=== PATIENT | female | born 1995 | race Caucasian/White ===

== ENCOUNTER 2019-08-02 08:00 | Inpatient (IN) ==
--- NOTE | 2019-08-02 08:23 | OB/GYN History & Physical ---
Date of Encounter: 08/02/19 Time of Encounter: 08:19 Assessment and Plan (1) and not yet delivered in third trimester Current visit: Yes Status: Acute (2) Elective induction of labor planned Current visit: Yes Status: Acute Patient will be induced with a Granados catheter and Cytotec plan is to anticipate vaginal delivery (3) 39 weeks gestation of Current visit: No Status: Resolved History of Present Illness HPI: Ms. Roth is a 24 year old female 5 para 1031 at 39-3/7 weeks who presented for induction of labor secondary to term with favorable cervix. She has an uncomplicated course and wanted to be induced at term. She has signed tubal ligation papers however to recommended that she have a tubal at 6 weeks. The risks and benefits of the tubal ligation had been. The risks and benefits of a tubal ligation was explained to the patient with failure rate of 3-5 per thousand with increased risk of ectopic if was to occur. She denies any contractions at this time denies any leaking fluid still having good movement. Patient is O+, GBS negative, rubella negative, Varicella positive Past Med Surg Social Fam HX - Past Medical History Source: patient, old records reviewed Medical history: no medical history, other Additional medical history: Interstitial cystitis, irritable bowel syndrome Psychiatric history: no psych history - Past Surgical History Additional surgical history: right fallopian tube removed - Social History Smoking Status: Current every day smoker Smokeless Tobacco Status: No Alcohol use: occasionally Drug use: none Occupational status: unemployed Current living situation: Home - Independent Activity Level: Independent ambulation Recent Out of Country Travel Within the Last 8 Weeks: No Exposure or Possible Exposure to Illness During Travel: No - Family History Father Living Status: Still Living Hx Family Cardiac Disorders: Yes Hx Family Respiratory Disorders: Yes - Additional Family History Additional family history: Noncontributory at this time Obstetrical History - Pregnancies : 5 Para: 1 Ab's: 3 Livin Medications and Allergies Vit/FA 1 tab PO DAILY 08/01/15 [History] Ferrous Sulfate [Iron] 325 mg PO DAILY 08/02/19 [History] Allergy/AdvReac Type Severity Reaction Status Date / Time No Known Allergies Allergy Verified 08/02/19 08:59 Review of System OB All systems PM: reviewed and no additional remarkable complaints except as stated Exam - Constitutional Constitutional: well developed, well nourished, no acute distress, mild distress, thin - HEENT HEENT: EOMI, PERRL, Mucus Membranes Moist - Neck Neck exam: full ROM - Lungs Respiratory exam: CTAB - Cardiovascular Cardiovascular exam: RRR - Abdomen Abdomen: Present: bowel sounds normal, gravid ( heart tones 140s reactive occasional contractions seen) - Cervix Dilation: 2 Effacement: 80 Station: -1 (Granados catheter placed 40 mL balloon inflated then 25 g of Cytotec placed vaginally) Results Result Diagrams: 08/02/19 08:40 All other labs normal.
[2019-08-02] MEDS ORDERED: *HR* Nalbuphine 10 MG/ML AMPUL IVP PRN (08:37)
[2019-08-02] MEDS ORDERED: Naloxone 0.4 MG/ML INJ IVP PRN ×2 (08:37→11:16)
[2019-08-02] MEDS ORDERED: Ondansetron 4 MG/2 ML VIAL IVP PRN ×2 (08:37→11:16)
[2019-08-02] MEDS ORDERED: Famotidine 20 MG/2 ML VIAL IVP PRN (08:37)
[2019-08-02] MEDS ORDERED: Lidocaine 1% 20 ML MDV INFILT PRN (08:37)
[2019-08-02] MEDS ORDERED: Metoclopramide 10 MG/2 ML VIAL IVP PRN (08:37)
[2019-08-02] MEDS ORDERED: Ringers Solution, Lactated 1,000 ML IVC SCH (08:45)
[2019-08-02 09:05] LABS: Basophils % 0.2 %; Eosinophils # 0.1 K/mcL (0.0-0.6); Eosinophils % 0.6 %; Hemoglobin 11.9 g/dL (11.5-15.4); Immature Granulocytes % 0.2 % (0-4); Lymphocytes % 22.8 %; Mean Corpuscular Hemoglobin 31.2 pg (28.0-33.3); Mean Corpuscular Volume 91.6 fL (83.0-100.0); Mean Platelet Volume 13.1 fL (9.4-12.4); Monocytes # 0.8 K/mcL (0.0-1.3); Neutrophils # 5.9 K/mcL (1.6-8.9); Platelet Count 146 K/mcL (140-400); Red Blood Count 3.82 M/mcL (3.82-4.97); Red Cell Distribution Width 13.8 % (11.5-14.5); Segmented Neutrophils % 67.2 %; White Blood Count 8.8 K/mcL (4.3-11.1)
[2019-08-02 09:27] LABS: Amphetamine Screen,Urine Negative ng/mL (Cutoff=1000); Barbiturate Screen,Urine Negative ng/mL (Cutoff=200); Benzodiazepines Screen,Urine Negative ng/mL (Cutoff=200); Cannabinoid Screen,Urine Negative ng/mL (Cutoff = 50); Cocaine Screen,Urine Negative ng/mL (Cutoff= 300); Opiate Screen,Urine Negative ng/mL (Cutoff=300); Phencyclidine Screen,Urine Negative ng/mL (Cutoff=25)
[2019-08-02] MEDS ORDERED: miSOPROStol 25 MCG TABLET VG SCH (09:45)
[2019-08-02] MEDS ORDERED: Oxytocin 20 units/ LR 1000 mL 20 UNIT/1,000 ML BAG IVC SCH ×2 (10:00→17:31)
[2019-08-02] MEDS ORDERED: EPHEDrine 50 MG/ML VIAL IVP PRN (11:16)
[2019-08-02] MEDS ORDERED: *HR* FentaNYL (PF) 100 MCG/2 ML VIAL EP ONE (11:16)
[2019-08-02] MEDS ORDERED: Ropivacaine/PF 0.2% 20 ML VIAL EP ONE (11:16)
--- NOTE | 2019-08-02 11:22 | Anesthesia Evaluation PreOp ---
Date of Encounter: 08/02/19 Time of Encounter: 11:03 - Past History Planned Operation: RADHA Cardiac History: Denies any Significant Hx Pulmonary History: Smoker, Pack/yr (10pk/yr) MUNITIONS HANDLER SUPERVISOR History: Denies Any Significant HX Other Medical History: GERD, Other (Interstitial cystitis, chronic kidney infect ions, ectopic , miscarriage x 2) Anesthesia History: No Prior Anesthetic Complications, Past Anesthesia (history ectopic ) : Yes Alcohol Use: none Drug use: none Medications and Allergies Vit/FA 1 tab PO DAILY 08/01/15 [History] Ferrous Sulfate [Iron] 325 mg PO DAILY 08/02/19 [History] Allergy/AdvReac Type Severity Reaction Status Date / Time No Known Allergies Allergy Verified 08/02/19 08:59 - Meds/Allergy Pre-op Review Medications Reviewed: Yes Allergies Reviewed: Yes Beta Blockers on Current Med List: No Anesthesia Results - Labs 08/02/19 08:40 Anesthesia Exam BP 140/81 P 61 R 18 T 98.0 Height: 5'4" Weight: 61.3kg NPO (# of Hours): 4 Pain Scale: 8 Pain Scale Used: Numeric (1 - 10) - HEENT Pupil (Motor): Pupils equal Mallampati: II Teeth: Normal Oral Opening: Greater than 3 - MUNITIONS HANDLER SUPERVISOR LOC: Oriented MUNITIONS HANDLER SUPERVISOR Motor: Normal RUE, Normal LUE, Normal RLE, Normal LLE, Normal Face MUNITIONS HANDLER SUPERVISOR Sensory: Normal: RUE, LUE, RLE, LLE, Face - Cardiac Rhythm: Regular Murmur: None JVD: No Carotid Bruit: No - Pulmonary Breath Sounds: bilateral Clear Respiratory Effort: Symmetrical Anesthesia Assess/Plan ASA Score: 2 Level of consciousness: Cooperative, Oriented, Tranquil Anesthetic Plan: Epidural Autologous Blood: Yes Monitoring Plan: Standard Monitors Recovery Plan: Other
[2019-08-02] MEDS ORDERED: Epidural Premix (fent/bupiv) 110 ML EP SCH (11:30)
[2019-08-02] MEDS ORDERED: Ropivacaine/PF 0.2% 20 ML VIAL ONE (11:36)
[2019-08-02] MEDS ORDERED: *HR* FentaNYL (PF) 100 MCG/2 ML VIAL ONE (11:36)
--- NOTE | 2019-08-02 12:15 | Anesthesia Procedures ---
Date of Encounter: 08/02/19 Time of Encounter: 11:41 Procedures: Anesthesia - Epidural/Spinal Patient ID/Chart reviewed: Yes Patient examined: Yes OB Eval: Gestational age: 39.3 OB Eval: : 5 OB Eval: Hx Para: 1 OB Eval: Dilated at (cm): 5 OB Eval: Contractions: Non-stressed pattern Consent Obtained: Yes Supplemental Oxygen: None/Room Air Site Prep: Aseptic Technique, Sterile prep and drape, Povidone-Iodine 1% Patient position: upright Local Anesthetic: Lidocaine 1% Amount of Local Anesthetic used: 3 Touhy Needle Gauge: 18 Touhy Needle Depth (cm): 5 Catheter Depth at Skin (cm): 13 Test Dose (1.5% Lido + Epi): Volume given (mls): 3 Test Dose Result: Negative Loading Dose: Fentanyl (mcg): 100 Loading Dose: Other: Ropivicaine 0.2% 5ml, 3ml NS Loading Dose Administered: Thru Catheter Infusion Med: 0.125% Bupivacaine w/ 2 mcg/ml Fentanyl Infusion Rate (mls/hr): [address]: Tegaderm, Tape Interspace Used: L3-L4 Loss of Resistance (MARILU): Yes Blood: No CSF: No Paresthesia: No Procedure: RADHA placed 1st pass in upright position. MARILU achieved with normal saline. Catheter threaded with ease to 13cm at the skin. Test dose negative. Pt stated comfort following epidural bolus administration. VSS throughout. Vitals + FHT's: 1141 BP 143/93 P 76 R 18 1203 BP 123/73 P 83 R 16
--- NOTE | 2019-08-02 12:25 | OB Labor Progress Note ---
Date of Encounter: 08/02/19 Time of Encounter: 12:23 Labor Progress Note - Subjective Subjective: Patient's catheter is out was getting uncomfortable and epidural is now placed. - Cervix Cervix: 5-6/80/-2 AROM clear fluid - Heart Tones Heart Tones: heart tones 140s reactive - Accord Accord: IUPC placed contractions every 2 minutes and adequate - Interventions Interventions: Anticipate normal spontaneous vaginal delivery
--- NOTE | 2019-08-02 15:45 | OB/GYN Procedure Note ---
Delivery - Delivery Date: 08/02/19 Provider: Kofi Rodriguez Intrapartum events: none Delivery augmentation: rupture of membranes (with vann) Delivery monitor: external FHT, external uterine, internal uterine Quantitated Blood Loss: 100 - (s) Infant A Infant Delivery Date: 08/02/19 Infant Delivery Time: 15:27 Presentation: vertex Position: SPENCER Route of delivery: Gender: Male Viability: Viable Pounds: 8 Ounces: 9 Weight Gram: 3.895 kg at 1 minute: 9 at 5 mins: 9 Shoulder Dystocia: not encountered Specimens collected: cord blood Placenta: spontaneous Cord: 3 umbilical vessels - Repair Episiotomy: none Laceration Description: None - Complications Delivery complications: none Delivery comments: Patient is a 24 year old 5 para 1031 at 39-3/7 weeks who presented to labor and delivery for an induction of labor however patient was already donya and was on was 3 cm on admission. Patient was donya every 2 minutes on admission it only required us to place a Vann catheter and within an hour she was 5-6 cm. Epidural was placed she was then artificially ruptured no additional augmentation was necessary patient progressed rapidly to be complete and pushed for approximately 10 minutes delivering a viable male in left occiput anterior presentation at 1527. There was no nuchal cord, no meconium, as well as suction the abdomen. Apgars were 9 at one, 9 at 5 minutes, infant weight was 8 lbs. 9 oz. Placenta was delivered spontaneously with a three-vessel cord, boat tester Dr Rodriguez, certified ophthalmic assistant Zeyad Keene OMS 3, anesthesia epidural, estimated blood loss 100 mL. Perineum cervix and vagina was VISUALIZED intact. Patient tolerated the delivery well she will be observed 2 hours before being taken floor. - Disposition Mom disposition: stable in LDR disposition: stable in LDR
[2019-08-02] MEDS ORDERED: Acetaminophen 325 MG TABLET PO PRN (17:31)
[2019-08-02] MEDS ORDERED: Benzocaine/Menthol 56 GM AEROSOL SPRAY TP PRN (17:31)
[2019-08-02] MEDS ORDERED: Lanolin 7 G OINT...G. TP PRN (17:31)
[2019-08-02] MEDS ORDERED: Measles/Mumps/Rubella Vacc 0.5 ML VIAL SQ PRN (17:31)
[2019-08-02] MEDS: Ibuprofen 600 MG TABLET PO PRN (18:23)
[2019-08-03] MEDS: Ibuprofen 600 MG TABLET PO PRN ×2 (00:56→09:15)
[2019-08-03 07:11] LABS: Basophils % 0.3 %; Eosinophils # 0.1 K/mcL (0.0-0.6); Eosinophils % 0.8 %; Hematocrit 32.8 % (35.3-44.9); Hemoglobin 10.7 g/dL (11.5-15.4); Immature Granulocytes % 0.5 % (0-4); Lymphocytes % 18.8 %; Mean Corpuscular HGB Conc 32.6 g/dL (31.6-35.5); Mean Corpuscular Hemoglobin 30.5 pg (28.0-33.3); Mean Corpuscular Volume 93.4 fL (83.0-100.0); Mean Platelet Volume 13.3 fL (9.4-12.4); Monocytes % 8.8 %; Neutrophils # 7.7 K/mcL (1.6-8.9); Platelet Count 129 K/mcL (140-400); Red Blood Count 3.51 M/mcL (3.82-4.97); Red Cell Distribution Width 13.5 % (11.5-14.5); Segmented Neutrophils % 70.8 %; White Blood Count 10.8 K/mcL (4.3-11.1)
[2019-08-03 08:09] VITALS: BP 120/79
[2019-08-03] MEDS ORDERED: Prenatal Vit/FA 1 EACH TABLET PO SCH (09:00)
--- NOTE | 2019-08-03 09:40 | Discharge Summary ---
Date of Encounter: 08/03/19 Time of Encounter: 09:37 - Discharge Diagnosis (1) Vaginal delivery Priority: Primary Status: Acute Comments: Feeling well Tolerating regular diet Pain well-controlled with by mouth pain meds Ambulating independently Voiding independently Lochia light Passing flatus, no BM yet Vital signs stable Discharge home today (2) Breast feeding status of mother Priority: Secondary Status: Acute Comments: Community resources provided - Discharge Medications Prescriptions: New Acetaminophen [Tylenol] 650 mg PO Q6HR PRN tablet PRN Reason: Mild Pain Ibuprofen [Motrin] 600 mg PO Q6HR PRN #30 tablet PRN Reason: Cramping Benzocaine/Menthol [place] [Dermoplast [place]] 1 appl TP QID PRN aerosol PRN Reason: See Comments Docusate [Colace] 100 mg PO BID #30 capsule Lanolin [Lansinoh] 1 appl TP TID PRN oint...g. PRN Reason: Sore Nipples Continued Vit/FA 1 tab PO DAILY Discontinued Ferrous Sulfate [Iron] 325 mg PO DAILY Home Medications: Vit/FA 1 tab PO DAILY 08/01/15 [History] Acetaminophen [Tylenol] 650 mg PO Q6HR PRN tablet 08/03/19 [Rx] Benzocaine/Menthol [place] [Dermoplast [place]] 1 appl TP QID PRN aerosol 08/03/19 [Rx] Docusate [Colace] 100 mg PO BID #30 capsule 08/03/19 [Rx] Ibuprofen [Motrin] 600 mg PO Q6HR PRN #30 tablet 08/03/19 [Rx] Lanolin [Lansinoh] 1 appl TP TID PRN oint...g. 08/03/19 [Rx] Allergies/Adverse Reactions: Allergy/AdvReac Type Severity Reaction Status Date / Time No Known Allergies Allergy Verified 08/02/19 08:59 Data Procedures and tests throughout hospitalization: Laboratory Tests 08/02/19 08/02/19 08/03/19 08:40 08:40 06:17 WBC 8.8 10.8 RBC 3.82 3.51 L Hgb 11.9 10.7 L Hct 35.0 L 32.8 L MCV 91.6 93.4 MCH 31.2 30.5 MCHC 34.0 32.6 RDW 13.8 13.5 Plt Count 146 129 L MPV 13.1 H 13.3 H Immature Gran % 0.2 0.5 Seg Neutrophils % 67.2 70.8 Lymphocytes % 22.8 18.8 Monocytes % 9.0 8.8 Eosinophils % 0.6 0.8 Basophils % 0.2 0.3 Neutrophils # 5.9 7.7 Lymphocytes # 2.0 2.0 Monocytes # 0.8 1.0 Eosinophils # 0.1 0.1 Basophils # 0.0 0.0 Urine Opiates Screen Negative Ur Buprenorphine Scrn Negative Ur Barbiturates Screen Negative Ur Phencyclidine Scrn Negative Ur Amphetamines Screen Negative U Benzodiazepines Scrn Negative Urine Cocaine Screen Negative U Marijuana (THC) Screen Negative Ur Drug Screen Interp See Below Labs on day of discharge: Labs from last 24 hours 08/03/19 06:17 WBC 10.8 RBC 3.51 L Hgb 10.7 L Hct 32.8 L MCV 93.4 MCH 30.5 MCHC 32.6 RDW 13.5 Plt Count 129 L MPV 13.3 H Immature Gran % 0.5 Seg Neutrophils % 70.8 Lymphocytes % 18.8 Monocytes % 8.8 Eosinophils % 0.8 Basophils % 0.3 Neutrophils # 7.7 Lymphocytes # 2.0 Monocytes # 1.0 Eosinophils # 0.1 Basophils # 0.0 Date of admission: 08/02/19 08:09 Primary care physician: PCP NONE Consults: 08/02/19 17:31 Consult to Environmental Engineering Manager [CONS] Routine Comment: Vaginal delivery, consult needed Discharging clinician: Iman Gardner Anticipated date of discharge: 08/03/19 - Patient Status Disposition: Home, Self-Care Condition: Good Functional capacity at discharge: independent ambulation Overall status at discharge: patient is progressing back to baseline - Discharge Instructions Follow Up With: NONE,PCP [Primary Care Provider] - Jerod Saldana MD [Partnered Physician] - - Diet and Activity Activity: increase activity as tolerated Diet: regular diet Hospital Course Reason for admission: active labor, IUP at term Delivery: Episiotomy: none Laceration: 2nd degree Other procedures: none complications: none Discharge diagnosis: IUP at term delivered Tichnor baby: male Time Attestation: Total time spent providing and/or coordinating discharge services: Time Spent: Less than 30 minutes Exam - Constitutional Vitals: Temp Pulse Resp BP Pulse Ox 98.1 F 59 14 120/79 96 08/03/19 08:08 08/03/19 08:08 08/03/19 09:17 08/03/19 08:08 08/03/19 08:08 General appearance IM: mild distress, A&O X 3, pleasant, answers questions appropriately - Respiratory Respiratory exam: Present: CTAB - Cardiovascular Cardiovascular exam IM: Present: RRR, +S1, +S2 - GI/Abdominal GI/Abdominal exam IM: normal bowel sounds, no peritoneal signs - Rectal Rectal exam: deferred - Uterine Tone: Firm Uterus Position: 2 Fingers Below Umbilicus, Midline - Extremities Exam Extremities exam IM: Present: full ROM, normal capillary refill, normal inspection, radial pulses palpable and symmetrical - Neurological Exam Neurological exam: alert, CN II-XII intact, normal gait, oriented X3, reflexes normal, no focal deficits, strengths equal and symetr throughout - Psychiatric Additional comments: Patient reports history of anxiety. Signs and symptoms of depression and anxiety discussed and patient verbalizes understanding of when to seek help.
== END 2019-08-03 15:30 | disposition home or self-care (01) | DRG 560 ==
LOC: 1NENULAB 08:09 → 1NENUOBS 17:36
PROVIDERS: ADMIT Obstetrics & Gynecology; ATTEND Obstetrics & Gynecology